=== PATIENT | female | born 1985 | race African-American/Black ===

== ENCOUNTER 2021-09-24 22:42 | Emergency (ER) | payer OTHER ==
[~2021-09-24] VITALS: Ht 167.6 cm; Wt 74.8 kg
[2021-09-24] MEDS ORDERED: LORAZEPAM INJ 2 MG/ML VIAL IV ONE (23:15)
[2021-09-24] MEDS ORDERED: LORAZEPAM INJ 2 MG/ML VIAL ONE (23:18)
[2021-09-25] MEDS ORDERED: ZIPRASIDONE 20 MG VIAL IM PRN (00:15)
[2021-09-25] MEDS ORDERED: HALOPERIDOL LACTATE 5 MG/ML VIAL IM ONE (00:15)
[2021-09-25] MEDS ORDERED: HALOPERIDOL LACTATE 5 MG/ML VIAL ONE (00:26)
[2021-09-25] MEDS ORDERED: DICYCLOMINE HCL20 MG PO (02:27)
[2021-09-25 02:46] VITALS: BP 109/60
== END 2021-09-25 02:35 | disposition home or self-care (01) ==
LOC: FSED 23:02
DX: R10.9 Unspecified abdominal pain (principal); F41.9 Anxiety disorder, unspecified
CPT/HCPCS: 74176; 99284; J1630; J2060

== ENCOUNTER 2021-11-27 22:44 | Emergency (ER) | payer SELFPAY ==
[~2021-11-27] VITALS: Ht 167.6 cm; Wt 74.8 kg
[~2021-11-27 22:44] MED LIST: DICYCLOMINE HCL20 MG PO
[2021-11-28] MEDS ORDERED: PROMETHAZINE 25MG/ NS 50ML (IV) IV ONE
[2021-11-28] MEDS ORDERED: SODIUM CHLORIDE 0.9% 1000ML 1,000 ML IV SCH
[2021-11-28] MEDS ORDERED: SODIUM CHLORIDE 0.9% 1000ML 1,000 ML ONE (00:18)
[2021-11-28] MEDS ORDERED: DICYCLOMINE HCL 20 MG/2 ML VIAL IM ONE ×2 (00:18)
[2021-11-28] MEDS ORDERED: PROMETHAZINE HCL (IM) 25 MG/ML VIAL IM ONE (00:18)
[2021-11-28] MEDS ORDERED: DIAZEPAM INJ 5 MG/ML 2 ML ONE (01:11)
[2021-11-28] MEDS ORDERED: FAMOTIDINE 20 MG/2 ML VIAL IV ONE (01:11)
[2021-11-28] MEDS ORDERED: FAMOTIDINE 20 MG/2 ML VIAL IV STA (01:12)
[2021-11-28] MEDS ORDERED: DIAZEPAM INJ 5 MG/ML 2 ML IV ONE (01:15)
[2021-11-28] MEDS ORDERED: PROMETHAZINE HC25 M1 PO (01:27)
[2021-11-28] MEDS ORDERED: PANTOPRAZOLE SO40 MG PO (01:28)
[2021-11-28] MEDS ORDERED: HYDROXYZINE HCL25 MG PO (01:29)
== END 2021-11-28 02:15 | disposition home or self-care (01) ==
LOC: FSED 22:47
DX: R11.2 Nausea with vomiting, unspecified (principal); K29.70 Gastritis, unspecified, without bleeding; R10.30 Lower abdominal pain, unspecified; K21.9 Gastro-esophageal reflux disease without esophagitis; I10 Essential (primary) hypertension; F41.0 Panic disorder [episodic paroxysmal anxiety]; F41.9 Anxiety disorder, unspecified; Z98.84 Bariatric surgery status
CPT/HCPCS: 80053; 80307; 81003; 85025; 99283; J0500; J2550; J3360; J7030

== ENCOUNTER 2022-01-19 23:30 | Emergency (ER) | payer OTHER ==
[~2022-01-19] VITALS: Ht 167.6 cm; Wt 68.5 kg
[~2022-01-19 23:30] MED LIST changes: +HYDROXYZINE HCL25 MG PO; +PANTOPRAZOLE SO40 MG PO; +PROMETHAZINE HC25 M1 PO
[2022-01-19] MEDS ORDERED: ONDANSETRON HCL INJ 2MG/ML 2ML 2 MG/ML VIAL IV STA (23:55)
[2022-01-20] MEDS ORDERED: ONDANSETRON ODT4 MG PO (00:43)
[2022-01-20] MEDS ORDERED: ONDANSETRON HCL INJ 2MG/ML 2ML 2 MG/ML VIAL ONE (01:14)
[2022-01-20 02:40] VITALS: BP 97/59
[2022-01-21] MEDS ORDERED: PROMETHAZINE HC25 M1 PO (02:26)
[2022-01-21] MEDS ORDERED: HYDROXYZINE HCL25 MG PO (02:29)
[2022-01-21] MEDS ORDERED: FAMOTIDINE40 MG PO (02:37)
== END 2022-01-20 02:40 | disposition home or self-care (01) ==
LOC: FSED 23:52
DX: K52.9 Noninfective gastroenteritis and colitis, unspecified (principal); R11.10 Vomiting, unspecified
CPT/HCPCS: 96374; 99283; J2405

== ENCOUNTER 2022-01-21 01:36 | Emergency (ER) | payer OTHER ==
[~2022-01-21] VITALS: Ht 167.6 cm; Wt 68.5 kg
[~2022-01-21 01:36] MED LIST changes: +ONDANSETRON ODT4 MG PO
[2022-01-21] MEDS ORDERED: PROMETHAZINE HC25 M1 PO (02:26)
[2022-01-21] MEDS ORDERED: HYDROXYZINE HCL25 MG PO (02:29)
[2022-01-21] MEDS ORDERED: ALPRAZOLAM 0.25 MG TAB PO ONE (02:30)
[2022-01-21] MEDS ORDERED: ALPRAZOLAM 0.25 MG TAB ONE (02:35)
[2022-01-21] MEDS ORDERED: FAMOTIDINE40 MG PO (02:37)
[2022-01-21 02:51] VITALS: BP 143/78
== END 2022-01-21 02:51 | disposition home or self-care (01) ==
LOC: FSED 01:40
DX: R11.2 Nausea with vomiting, unspecified (principal); R10.9 Unspecified abdominal pain; F41.9 Anxiety disorder, unspecified; I10 Essential (primary) hypertension; Z98.84 Bariatric surgery status
CPT/HCPCS: 81003; 81025; 99283

== ENCOUNTER 2022-07-07 00:27 | Emergency (ER) | payer OTHER ==
[~2022-07-07] VITALS: Ht 167.6 cm; Wt 68.5 kg
[~2022-07-07 00:27] MED LIST changes: +FAMOTIDINE40 MG PO
[2022-07-07] MEDS ORDERED: ONDANSETRON HCL INJ 2MG/ML 2ML 2 MG/ML VIAL IV STA (00:40)
[2022-07-07] MEDS ORDERED: ACETAMINOPHEN 1000 MG/100 ML IV STA (00:40)
[2022-07-07] MEDS ORDERED: SODIUM CHLORIDE 0.9% 1000ML 1,000 ML IV ONE (00:45)
[2022-07-07 00:58] LABS: BASOPHILS % 0.3 % (0.0-1.0); HEMOGLOBIN 12.9 g/dL (12.0-16.0); LYMPHOCYTES # (AUTO) 0.6 (1.0-3.2); LYMPHOCYTES % 8.6 % (18.0-39.1); MEAN CORPUSCULAR HEMOGLOBIN 30.4 pg (28-32); MEAN CORPUSCULAR HGB CONC 33.1 g/dL (31-35); MONOCYTES # (AUTO) 0.2 (0.2-0.8); MONOCYTES % 3.2 % (4.4-11.3); NEUTROPHILS # (AUTO) 6.6 (2.1-6.9); NEUTROPHILS % 87.6 % (38.7-80.0); PLATELET COUNT 247 x10e3/uL (140-360); RED BLOOD COUNT 4.24 x10e6/uL (3.6-5.1); RED CELL DISTRIBUTION WIDTH 13.7 % (11.7-14.4)
[2022-07-07] MEDS ORDERED: ONDANSETRON HCL INJ 2MG/ML 2ML 2 MG/ML VIAL ONE (01:04)
[2022-07-07] MEDS ORDERED: ACETAMINOPHEN 1000 MG/100 ML 100 ML IV ONE (01:04)
[2022-07-07 01:09] LABS: LIPASE 10 U/L (8-78)
[2022-07-07 01:11] LABS: ALBUMIN 4.4 g/dL (3.5-5.0); ANION GAP 18.3 mmol/L (8-16); CALCIUM 10.5 mg/dL (8.4-10.2); CREATININE, SERUM 0.86 mg/dL (0.57-1.11); POTASSIUM 3.3 mmol/L (3.5-5.1)
[2022-07-07] MEDS ORDERED: Morphine 4mg INJECTION 4 MG/ML INJ IV ONE (01:30)
[2022-07-07] MEDS ORDERED: IOPAMIDOL 370 MG/ML 100 ML INFUS..BTL INJ ONE (01:47)
[2022-07-07 02:29] LABS: AMPHETAMINES SCREEN,URINE NEGATIVE (NEGATIVE); BENZODIAZEPINES SCREEN,URINE NEGATIVE (NEGATIVE); PHENCYCLIDINE SCREEN,URINE NEGATIVE (NEGATIVE)
[2022-07-07 02:30] LABS: CLARITY,URINE CLOUDY (CLEAR); COLOR,URINE YELLOW (YELLOW); KETONES,URINE 2+ (NEGATIVE); LEUKOCYTE ESTERASE ,URINE NEGATIVE (NEGATIVE); NITRITE,URINE NEGATIVE (NEGATIVE); PROTEIN,URINE DIPSTICK 1+ (NEGATIVE); URINE UROBILINOGEN 0.2 mg/dL (0.2 - 1)
[2022-07-07 02:33] LABS: AMORPHOUS SEDIMENT,URINE MANY (FEW); BACTERIA,URINE MODERATE /HPF; EPITHELIAL CELLS,URINE FEW /LPF; RBC,URINE 0-5 /HPF (0-5)
[2022-07-07] MEDS ORDERED: PANTOPRAZOLE SO40 MG PO (02:59)
[2022-07-07] MEDS ORDERED: ONDANSETRON ODT4 MG PO (02:59)
[2022-07-07] MEDS ORDERED: DICYCLOMINE HCL20 MG PO (02:59)
== END 2022-07-07 03:31 | disposition home or self-care (01) ==
LOC: ER 00:37
DX: R10.30 Lower abdominal pain, unspecified (principal); K29.70 Gastritis, unspecified, without bleeding; R11.2 Nausea with vomiting, unspecified; I10 Essential (primary) hypertension; F41.9 Anxiety disorder, unspecified; Z20.822 Contact with and (suspected) exposure to COVID-19; Z98.84 Bariatric surgery status
CPT/HCPCS: 36415; 74177; 80053; 80307; 81001; 83690; 84702; 85025; 99284; C9113; J0131; J2270; J2405; J7030; Q9967; U0002

== ENCOUNTER 2022-08-01 07:40 | Emergency (ER) | payer SELFPAY ==
[~2022-08-01] VITALS: Ht 167.6 cm; Wt 72.1 kg
[2022-08-01] MEDS ORDERED: ONDANSETRON HCL INJ 2MG/ML 2ML 2 MG/ML VIAL IV STA (07:59)
[2022-08-01] MEDS ORDERED: SODIUM CHLORIDE 0.9% 1000ML 1,000 ML IV SCH (08:00)
[2022-08-01] MEDS ORDERED: ONDANSETRON HCL INJ 2MG/ML 2ML 2 MG/ML VIAL ONE (08:14)
[2022-08-01] MEDS ORDERED: KETOROLAC TROMETHAMINE 30 MG/ML VIAL ONE (08:14)
[2022-08-01] MEDS ORDERED: SODIUM CHLORIDE 0.9% 1000ML 1,000 ML ONE (08:14)
[2022-08-01] MEDS ORDERED: KETOROLAC TROMETHAMINE 30 MG/ML VIAL IV SCH (08:15)
[2022-08-01] MEDS ORDERED: IOPAMIDOL 370 MG/ML 100 ML INFUS..BTL INJ ONE (08:49)
[2022-08-01] MEDS ORDERED: DICYCLOMINE HCL20 MG PO (09:56)
[2022-08-01] MEDS ORDERED: REGLAN10 MG PO (09:56)
[2022-08-01] MEDS ORDERED: POTASSIUM CHLORIDE 20 MEQ TAB CR PO STA (10:00)
== END 2022-08-01 10:25 | disposition home or self-care (01) ==
LOC: FSED 07:49
DX: R10.31 Right lower quadrant pain (principal); R11.2 Nausea with vomiting, unspecified; I10 Essential (primary) hypertension; F41.9 Anxiety disorder, unspecified; Z98.84 Bariatric surgery status
CPT/HCPCS: 74176; 80053; 80307; 81003; 81025; 83518; 85025; 87400; 96374; 96376; 99284; J1885; J2405; J7030; Q9967

== ENCOUNTER 2022-08-17 09:15 | Emergency (ER) | payer OTHER ==
[~2022-08-17] VITALS: Ht 167.6 cm; Wt 68.0 kg
[~2022-08-17 09:15] MED LIST changes: +REGLAN10 MG PO
[2022-08-17] MEDS ORDERED: SODIUM CHLORIDE 0.9% 1000ML 1,000 ML IV STA (09:29)
[2022-08-17] MEDS ORDERED: DIPHENHYDRAMINE HCL INJ 50 MG/ML VIAL IV ONE (09:30)
[2022-08-17] MEDS ORDERED: FAMOTIDINE 20 MG/2 ML VIAL IV ONE ×2 (09:30→09:39)
[2022-08-17] MEDS ORDERED: PROMETHAZINE 25MG/ NS 50ML (IV) IV ONE (09:30)
[2022-08-17] MEDS ORDERED: DIPHENHYDRAMINE HCL INJ 50 MG/ML VIAL ONE (09:37)
[2022-08-17] MEDS ORDERED: PROMETHAZINE HCL (IM) 25 MG/ML VIAL IM ONE (09:39)
[2022-08-17] MEDS ORDERED: SODIUM CHLORIDE 0.9% 1000ML 1,000 ML ONE (09:39)
[2022-08-17] MEDS ORDERED: DICYCLOMINE HCL 10 MG CAP ONE (10:32)
[2022-08-17] MEDS ORDERED: LORAZEPAM 0.5 MG TAB ONE (10:33)
[2022-08-17] MEDS ORDERED: OMEPRAZOLE40 MG PO (10:39)
[2022-08-17] MEDS ORDERED: PROMETHAZINE HC25 M1 PO (10:39)
[2022-08-17] MEDS ORDERED: CHLORDIAZEPOXID10 MG PO (10:39)
[2022-08-17] MEDS ORDERED: LORAZEPAM 1 MG TAB PO ONE (10:45)
[2022-08-17] MEDS ORDERED: DICYCLOMINE HCL 10 MG CAP PO ONE (10:45)
[2022-08-17 11:10] VITALS: BP 130/76
== END 2022-08-17 11:12 | disposition home or self-care (01) ==
LOC: FSED 09:22
DX: R11.2 Nausea with vomiting, unspecified (principal); R10.10 Upper abdominal pain, unspecified; F12.10 Cannabis abuse, uncomplicated; F41.0 Panic disorder [episodic paroxysmal anxiety]; F41.9 Anxiety disorder, unspecified
CPT/HCPCS: 74018; 80053; 80307; 81003; 81025; 85025; 96374; 96375; 96376; 99284; J1200; J2550; J7030

== ENCOUNTER 2024-11-16 01:57 | Emergency (ER) | payer OTHER ==
[~2024-11-16] VITALS: Ht 167.6 cm; Wt 68.0 kg
[~2024-11-16 01:57] MED LIST changes: +CHLORDIAZEPOXID10 MG PO; +OMEPRAZOLE40 MG PO
[2024-11-16 02:00] VITALS: TEMP 98.1
[2024-11-16] MEDS: SODIUM CHLORIDE 0.9% 1000ML 2,000 ML IV STA (02:40)
[2024-11-16] MEDS: DIAZEPAM INJ 5 MG/ML 2 ML IV STA ×2 (02:41→05:07)
[2024-11-16 02:52] LABS: BASOPHILS % 0.2 % (0.0-1.0); EOSINOPHILS % 0.0 % (0.0-6.0); LYMPHOCYTES % 9.8 % (18.0-39.1); MONOCYTES % 5.9 % (4.4-11.3); NEUTROPHILS % 84.0 % (38.7-80.0); RED CELL DISTRIBUTION WIDTH 13.4 % (11.7-14.4)
[2024-11-16 03:12] LABS: EST GLOMERULAR FILTRATION RATE 92.0 ML/MIN (>=60)
[2024-11-16] MEDS: DIPHENHYDRAMINE HCL INJ 50 MG/ML VIAL IV STA (03:51)
[2024-11-16 05:12] LABS: LEUKOCYTE ESTERASE ,URINE NEGATIVE (NEGATIVE); PROTEIN,URINE DIPSTICK 2+ (NEGATIVE)
[2024-11-16 05:13] LABS: PREGNANCY TEST, URINE NEGATIVE (NEGATIVE)
[2024-11-16 05:14] LABS: AMPHETAMINES SCREEN,URINE NEGATIVE (NEGATIVE); OPIATES SCREEN,URINE NEGATIVE (NEGATIVE)
[2024-11-16 05:18] LABS: COCAINE SCREEN,URINE NEGATIVE (NEGATIVE)
[2024-11-16 05:19] LABS: CANNABINOIDS SCREEN,URINE POSITIVE (NEGATIVE); METHADONE SCREEN, URINE NEGATIVE (NEGATIVE)
[2024-11-16 05:20] LABS: URINE UROBILINOGEN 0.2 mg/dL (0.2 - 1)
[2024-11-16 05:22] VITALS: PULSE 75; RESP 16
[2024-11-16 05:26] LABS: EPITHELIAL CELLS,URINE FEW /LPF; WBC,URINE (MAN) 0-5 /HPF (0-5)
[2024-11-16] MEDS ORDERED: HYDROXYZINE HCL25 MG PO (05:33)
[2024-11-16] MEDS ORDERED: ONDANSETRON ODT4 MG PO (05:33)
[2024-11-16] MEDS ORDERED: ACETAMINOPHEN 325 MG TAB ONE (05:41)
[2024-11-16 05:55] VITALS: BP 120/78; PULSE 90; RESP 18; O2SAT 99
[2024-11-16] MEDS: ACETAMINOPHEN 325 MG TAB PO STA (05:58)
== END 2024-11-16 05:58 | disposition home or self-care (01) ==
LOC: ER 02:13
DX: R10.30 Lower abdominal pain, unspecified (principal); R11.2 Nausea with vomiting, unspecified; F12.10 Cannabis abuse, uncomplicated; I10 Essential (primary) hypertension; K21.9 Gastro-esophageal reflux disease without esophagitis; F41.9 Anxiety disorder, unspecified
CPT/HCPCS: 36415; 80053; 80307; 81001; 81025; 83690; 85025; 99284; J1200; J3360; J7030

== ENCOUNTER 2024-11-28 06:35 | Emergency (ER) | payer OTHER ==
[~2024-11-28] VITALS: Ht 167.6 cm; Wt 74.8 kg
[2024-11-28] MEDS: ONDANSETRON HCL INJ 2MG/ML 2ML 2 MG/ML VIAL IV STA (08:13)
[2024-11-28] MEDS: SODIUM CHLORIDE 0.9% 1000ML 1,000 ML IV ONE (08:13)
[2024-11-28] MEDS ORDERED: IOPAMIDOL 370 MG/ML 100 ML INFUS..BTL INJ ONE (09:17)
[2024-11-28 10:29] VITALS: PULSE 89; RESP 16; TEMP 98.2; O2SAT 99
== END 2024-11-28 10:31 | disposition home or self-care (01) ==
LOC: FSED 07:21
DX: R11.2 Nausea with vomiting, unspecified (principal); R10.13 Epigastric pain; F12.10 Cannabis abuse, uncomplicated
CPT/HCPCS: 71046; 74177; 93005; 99284; J2405; J7030; Q9967